=== PATIENT | female | born 1965 | race Caucasian/White ===

== ENCOUNTER 2020-03-15 08:08 | Outpatient (CLI) | payer OTHER, SELFPAY ==
--- NOTE | 2020-03-19 08:00 | ONC FU_ITS ---
Dr. Cook Patient Follow-Up Note Patient: Natividad Vargas Unit #: [id number]: 1965 Dicatated By: Zechariah Cook M.D.Date of Visit:Mar 15, 2020 Onc Med Follow-up/Prog Note Chief Complaint: Breast cancer. History of Present Illness: This is a 54 year-old woman with grade 2 infiltrating ductal carcinoma of the right breast, stage IA (T1c, N0, M0), ER/MT positive and HER-2/beatris positive. Her screening mammograms on 06/20/2018 were BI-RADS 0 with apparent focal architectural distortion in the right lateral superior posterior third breast at the tend 11:00 position. Diagnostic mammogram on 02/18/2018 was BI-RADS 4C, moderately suspicious, showing spiculated mass in the upper outer quadrant measuring 10 mm. Ultrasound showed an irregular shaped mass measuring 10 x 6 mm corresponding to the same area on mammogram. Ultrasound-guided biopsy of the right breast on 03/11/2018 showed grade nuclear grade 1 ductal carcinoma in situ. She was then referred to Dr. Brownlee in [place]. She had further evaluation with breast MRI on 03/29/2018. It showed an irregular mass with associated architectural distortion in the posterior upper outer right breast. It measured 2 x 2 by 1.5 cm. There were no other areas of abnormal enhancement within the right breast. There were no suspicious findings in the left breast. There was no abnormal axillary or internal mammary chain adenopathy noted. On 04/11/2018 she underwent right breast lumpectomy with right axillary sentinel lymph node biopsy. Pathology showed grade 2 invasive ductal carcinoma measuring 18 x 15 x 7 mm. There was DCIS present in the specimen. There was invasive carcinoma within 4 mm of the margin and DCIS within 0.5 mm of the margin. There was no involvement in one sentinel lymph node. The breast prognostic profile showed ER positive at 100% and MT positive at 30%. It was reported to be positive for HER-2/beatris, 3+ by IHC with positive staining in 80% of cells. The Ki-67 was 10%. She then underwent reexcision lumpectomy on 04/23/2018. Pathology showed postlumpectomy changes with no residual in situ or invasive carcinoma identified. She then underwent partial breast radiation in April 2018. I had seen her initially on 05/13/2018. With node negative HER-2/beatris positive disease she was advised to undergo adjuvant chemotherapy with 4 cycles of cyclophosphamide/Taxotere and a year of Herceptin. Her other medical illnesses include hypertension, hypertriglyceridemia, type II diabetes, and GERD. Her surgical history includes a previous hysterectomy without oophorectomy. She has a history of smoking 1 pack of cigarettes daily for 20 years. She quit smoking in 2010. She does not drink alcohol. INTERIM HISTORY: She began cycle 1 of cyclophosphamide/Taxotere and weekly Herceptin on 05/28/2018. She was given 1st cycle prophylaxis with Neulasta. She tolerated it well. She then continued with cycle 2 on 06/20/2018, with cycle 3 on 07/09/2018, and with cycle 4 on 07/31/2018. She then continued single agent Herceptin with cycle 1 administered on 08/20/2018. She has continued treatment on the 3-week dosing schedule. As of 01/14/2019 she received her 8th cycle of single agent Herceptin. She also had started adjuvant hormonal therapy with tamoxifen in October 2018. The tamoxifen was stopped at her follow-up visit on 12/24/2018 due to side effects, including nausea, shortness of breath, and hot flashes. She continued with cycle 9 of single agent Herceptin on 02/04/2019. That time she began further adjuvant hormonal therapy with anastrozole 1 mg daily, as her hormone levels were confirmed to be in menopausal range. She then continued with cycle 10 of Herceptin on 02/25/2019. On 03/03/2019 she had been seen in the emergency room with chest pain, shortness of breath, and nausea. The pain was described as a sharp pain in the substernal area which radiates through to the back between the shoulder blades. Her evaluation, which included CT pulmonary angiogram and the usual cardiac studies, was unrevealing. The symptoms had completely resolved within a few days. A specific cause was not determined, but as a precaution I did opt to have her stop the anastrozole. She continued the Herceptin on schedule, and as of 04/29/2019 she receive cycle 13 at the 3-week dosing schedule, which completed a full year of treatment. She was seen for a follow-up visit on 05/20/2019, and at that point she restarted adjuvant hormonal therapy with anastrozole 1 mg daily. She again experienced significant musculoskeletal pain, particularly in the lower extremities. She stopped taking it as of October 2019. She is seen for a follow-up visit. She has been feeling pretty good generally. She says she has gradually been getting stronger, and she is now back to normal activity. Her appetite has been down a little, but that she attributes to the hot weather. She has not had fever, but she sometimes has hot flashes at night. She has no shortness of breath, cough, or chest pain. Lately she has had some nausea. Her acid reflux is adequately managed with pantoprazole. Bowel function is okay now. She has no diarrhea. She has no complaints. She still has some joint pain, mainly in the ankles and feet. She has no focal neurologic symptoms. Medications: Chlorthalidone 1 Tablet (of 25 mg) Oral daily, EQ Acetaminophen PM 1 Tablet (of 500-25 mg) Oral at bedtime PRN, Fluticasone Propionate Suspension Nasal, K-Tab 3 Tablet (of 10 meq) Tablet, controlled release Oral daily, Lantus 44 Units (of 100 Units/mL) Subcutaneous at bedtime, Metoprolol Tartrate 1 Tablet (of 50 mg) Oral b.i.d., Montelukast Sodium 1 Tablet (of 10 mg) Oral at bedtime, Multivitamin Adult 1 Tablet Oral daily, Pantoprazole Sodium 1 tbsp (of 40 mg) Tablet, enteric coated Oral b.i.d., ProAir HFA 2 puff(s) (of 108 (90 base) mcg/act) Aerosol, solution Inhalation q 4 hours, Sudogest PE 1 Tablet (of 10 mg) Oral b.i.d. PRN, Trulicity 1 (0.75 mg/0.5mL) Subcutaneous q 7 days Allergies: CeleBREX, Codeine Sulfate, Keflex, and vioxx. Review of Systems: Constitutional - She has been feeling really good. Her energy is good. She is back to working full-time and she has normal activity without restrictions. Her appetite is good and weight is up about 5 pounds from last visit. No fevers. She sometimes has hot flashes at night. No sweating. ECOG score is 0, ENMT - No sinus congestion/drainage. No mouth sores. No sore throat or difficulty swallowing, Hematologic/Lymphatic - No abnormal bruising or bleeding, Respiratory - No shortness of breath. No cough. No pleuritic pain or hemoptysis, Cardiovascular - No angina pain. No palpitations, Gastrointestinal - She has been having some nausea the last few days. No vomiting. Her heartburn is adequately managed with pantoprazole. No diarrhea or constipation. No blood in the stool or black stools, Genitourinary (F) - No dysuria or hematuria. No urinary frequency. No urgency or incontinence, Musculoskeletal - She has been having some joint pain. She was having significant pains in her legs while taking the snastrozole, but since stopping the medication it has improved, Integumentary - No skin complications, Neurologic - No headache or dizziness. No numbness or tingling. No other focal neurologic symptoms, Psychiatric - No anxiety or depression. No insomnia. Vital Signs: Performed on Mar 15, 2020 08:15 Height - 63.00 in Weight - 207.6 lbs (HIGH) BSA - 1.96 sq.m BMI - 36.77 (HIGH) Temperature - 97.6 F (LOW) Pulse - 73 /min Respiration - 20 /min BP - 140/72 mm(hg) O2 Sat - 99 % Pain - 0 Physical Examination: Constitutional - She looks good generally, Eyes - Sclerae nonicteric. Conjunctivae clear, ENMT - No lesions noted in the oral cavity, Hematologic/Lymphatic - No cervical or clavicular adenopathy, Respiratory - Lungs are clear with good air movement bilaterally, Cardiovascular - Heart rhythm is regular. There is a I/ systolic murmur. There is no gallop or rub noted, Breasts - There is a firm mass at the lumpectomy site in the superior aspect of the right breast measuring approximately 3 x 4 cm. The left breast shows no mass. There is no axillary adenopathy, Abdomen - Soft. Liver and spleen are not enlarged. There is no abdominal mass or ascites noted and there is no inguinal adenopathy, Extremities - No edema. Pedal pulses are palpable bilaterally, Neurologic - No focal neurologic deficits noted. Lab/Imaging: Test performed on Feb 23, 2020 07:31 Cholesterol, Total 175 mg/dL Glucose 130 mg/dL BUN 5 mg/dL HDL Cholesterol 57 mg/dL Creatinine 0.69 mg/dL LDL Cholesterol 88 mg/dL Cr Clearance (Est) 140.44 mL/min VLDL Cholesterol 30 mg/dL BUN/Creatinine Ratio 135 Absolute Value Triglycerides 150 mg/dL Sodium 135 mmol/L Potassium 3.8 mmol/L Chloride 92 mmol/L CO2 29 mmol/L Calcium 9.9 mg/dL Protein, Total 7.0 g/dL Albumin 4.6 g/dL Globulin 2.4 g/dL Bilirubin, Total 0.4 mg/dL Alkaline Phosphatase 122 IU/L AST (SGOT) 18 IU/L ALT (SGPT) 22 IU/L Hemoglobin A1C 5.4 % Impression: 1. Patient with grade 2 invasive ductal carcinoma of the right breast, stage IA (T1c, N0, M0), ER/MT positive and HER-2/beatris positive. 2. She underwent right breast lumpectomy with right axillary sentinel lymph node biopsy on 04/11/2018 followed by reexcision lumpectomy on 04/29/2018. 3. She underwent partial breast radiation April 2018. Her other medical illnesses include: 4. Hypertension. 5. Hypertriglyceridemia. 6. Type II diabetes. 7. GERD. She was then given adjuvant chemotherapy with 4 cycles of cyclophosphamide/Taxotere together with weekly Herceptin, from 05/28/2018-07/31/2018. She then continued adjuvant therapy with single agent Herceptin at a 3-week dosing schedule, cycle 1 beginning 08/20/2018. Her treatment was complicated by diarrhea, though she had negative colonoscopy and negative stool cultures on 09/06/2018. She also had mild fatigue and mild neuropathy symptoms. Overall, she toolerated the chemotherapy well. She then continued treatment with single agent Herceptin at the 3-week dosing schedule. In October 2018 she began adjuvant hormonal therapy with tamoxifen 20 mg daily. The tamoxifen was stopped at her follow-up visit on 12/24/2018 due to nausea, shortness of breath, andl hot flashes. As of 02/04/2019 she received cycle 9 of single agent Herceptin, and at that time she began further adjuvant hormonal therapy with anastrozole 1 mg daily, as her hormone levels were confirmed to be in menopausal range. She then continued with cycle 10 of Herceptin on 02/25/2019. On 03/03/2019 she was seen in the emergency room with pretty severe pain in the substernal area. The pain radiated through to the back. It was associated with nausea and shortness of breath. A specific cause was not determined. However, I did opt to have her hold the anastrozole. She continued Herceptin on schedule. As of 04/29/2019 she completed cycle 13 at the 3-week dosing interval. She had also received the equivalent a 4 cycles during her chemotherapy, so that she has now completed her full course of 17 cycles. 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 She was mildly anemic, and her serum iron studies from 04/29/2019 did show low transferrin saturation at 18.1% with ferritin also relatively low at 54.0 ng/mL, consistent with iron deficiency. As she previously had difficulty tolerating oral iron supplements, she was given parenteral iron replacement with Injectafer. At that point she also restarted adjuvant hormonal therapy with anastozole 1 mg daily. However, it again caused significant musculoskeletal pain, particularly in the lower extremities, and she stopped taking it as of October 2019. At this point she is feeling much better generally. Her activity tolerance is back to normal, and she is having just mild joint pain. She has had residual seroma at her lumpectomy site in the right breast, and I suspect that it is now beginning to organize. Plan: She will now begin further adjuvant hormonal therapy with exemestane 25 mg daily, but that will be subject to verification of insurance coverage. I will see her again in 6 months, or sooner as needed. Signed By: Zechariah Cook M.D. <<Signature on File>>
== END 2020-03-15 08:09 | disposition home or self-care (01) ==
LOC: ONCMED 08:11
PROVIDERS: PCP Nurse Practitioner; Visit Provider Internal Medicine Medical Oncology
DX: C50.411 Malignant neoplasm of upper-outer quadrant of right female breast (principal); Z17.0 Estrogen receptor positive status [ER+]; Z79.811 Long term (current) use of aromatase inhibitors; Z92.21 Personal history of antineoplastic chemotherapy; N64.89 Other specified disorders of breast
CPT/HCPCS: 99214

== ENCOUNTER 2020-04-29 08:29 | Outpatient (CLI) | payer OTHER, SELFPAY ==
--- NOTE | 2020-05-02 08:51 | ONC FU_ITS ---
Dr. Cook Patient Follow-Up Note Patient: Natividad Vargas Unit #: [id number]: 1965 Dicatated By: Zechariah Cook M.D.Date of Visit:Apr 29, 2020 Onc Med Follow-up/Prog Note Chief Complaint: Breast cancer. History of Present Illness: This is a 54 year-old woman with grade 2 infiltrating ductal carcinoma of the right breast, stage IA (T1c, N0, M0), ER/WV positive and HER-2/beatris positive. Her screening mammograms on 06/20/2018 were BI-RADS 0 with apparent focal architectural distortion in the right lateral superior posterior third breast at the tend 11:00 position. Diagnostic mammogram on 02/18/2018 was BI-RADS 4C, moderately suspicious, showing spiculated mass in the upper outer quadrant measuring 10 mm. Ultrasound showed an irregular shaped mass measuring 10 x 6 mm corresponding to the same area on mammogram. Ultrasound-guided biopsy of the right breast on 03/11/2018 showed grade nuclear grade 1 ductal carcinoma in situ. She was then referred to Dr. Brownlee in [place]. She had further evaluation with breast MRI on 03/29/2018. It showed an irregular mass with associated architectural distortion in the posterior upper outer right breast. It measured 2 x 2 by 1.5 cm. There were no other areas of abnormal enhancement within the right breast. There were no suspicious findings in the left breast. There was no abnormal axillary or internal mammary chain adenopathy noted. On 04/11/2018 she underwent right breast lumpectomy with right axillary sentinel lymph node biopsy. Pathology showed grade 2 invasive ductal carcinoma measuring 18 x 15 x 7 mm. There was DCIS present in the specimen. There was invasive carcinoma within 4 mm of the margin and DCIS within 0.5 mm of the margin. There was no involvement in one sentinel lymph node. The breast prognostic profile showed ER positive at 100% and W[place] positive at 30%. It was reported to be positive for HER-2/beatris, 3+ by IHC with positive staining in 80% of cells. The Ki-67 was 10%. She then underwent reexcision lumpectomy on 04/23/2018. Pathology showed postlumpectomy changes with no residual in situ or invasive carcinoma identified. She then underwent partial breast radiation in April 2018. I had seen her initially on 05/13/2018. With node negative HER-2/beatris positive disease she was advised to undergo adjuvant chemotherapy with 4 cycles of cyclophosphamide/Taxotere and a year of Herceptin. Her other medical illnesses include hypertension, hypertriglyceridemia, type II diabetes, and GERD. Her surgical history includes a previous hysterectomy without oophorectomy. She has a history of smoking 1 pack of cigarettes daily for 20 years. She quit smoking in 2010. She does not drink alcohol. INTERIM HISTORY: She began cycle 1 of cyclophosphamide/Taxotere and weekly Herceptin on 05/28/2018. She was given 1st cycle prophylaxis with Neulasta. She tolerated it well. She then continued with cycle 2 on 06/20/2018, with cycle 3 on 07/09/2018, and with cycle 4 on 07/31/2018. She then continued single agent Herceptin with cycle 1 administered on 08/20/2018. She has continued treatment on the 3-week dosing schedule. As of 01/14/2019 she received her 8th cycle of single agent Herceptin. She also had started adjuvant hormonal therapy with tamoxifen in October 2018. The tamoxifen was stopped at her follow-up visit on 12/24/2018 due to side effects, including nausea, shortness of breath, and hot flashes. She continued with cycle 9 of single agent Herceptin on 02/04/2019. That time she began further adjuvant hormonal therapy with anastrozole 1 mg daily, as her hormone levels were confirmed to be in menopausal range. She then continued with cycle 10 of Herceptin on 02/25/2019. On 03/03/2019 she had been seen in the emergency room with chest pain, shortness of breath, and nausea. The pain was described as a sharp pain in the substernal area which radiates through to the back between the shoulder blades. Her evaluation, which included CT pulmonary angiogram and the usual cardiac studies, was unrevealing. The symptoms had completely resolved within a few days. A specific cause was not determined, but as a precaution I did opt to have her stop the anastrozole. She continued the Herceptin on schedule, and as of 04/29/2019 she receive cycle 13 at the 3-week dosing schedule, which completed a full year of treatment. She was seen for a follow-up visit on 05/20/2019, and at that point she restarted adjuvant hormonal therapy with anastrozole 1 mg daily. She again experienced significant musculoskeletal pain, particularly in the lower extremities. In July she began a trial of therapy with letrozole 2.5 mg daily, also tolerated poorly. She stopped taking it as of October 2019. In March 2020 she began further adjuvant hormonal therapy with exemestane 25 mg daily. She is seen for a follow-up visit. She indicates that she had to stop the exemestane 2 weeks ago because of multiple side effects including fatigue and musculoskeletal pain. She felt like she was going to combust from the inside out. She is feeling better now, though she still has some fatigue. ECOG score is 1. Her appetite is just fair. She has not has fever. She has some hot flashes, but not as bad now. She has a little bit of cough. She does not complain of shortness of breath or chest pain. She was having nausea, but that has resolved. Bowel function is OK now. Her diarrhea has resolved. She has no complaints. She still has mild pain in her [place] bones. She has no other joint or bone pain. She had headache for the first few days after stopping exemestane. She still has some numbness/tingling in her feet. Medications: Chlorthalidone 1 Tablet (of 25 mg) Oral daily, EQ Acetaminophen PM 1 Tablet (of 500-25 mg) Oral at bedtime PRN, Fluticasone Propionate Suspension Nasal, K-Tab 3 Tablet (of 10 meq) Tablet, controlled release Oral daily, Lantus 44 Units (of 100 Units/mL) Subcutaneous at bedtime, Metoprolol Tartrate 1 Tablet (of 50 mg) Oral b.i.d., Montelukast Sodium 1 Tablet (of 10 mg) Oral at bedtime, Multivitamin Adult 1 Tablet Oral daily, Pantoprazole Sodium 1 tbsp (of 40 mg) Tablet, enteric coated Oral b.i.d., ProAir HFA 2 puff(s) (of 108 (90 base) mcg/act) Aerosol, solution Inhalation q 4 hours, Sudogest PE 1 Tablet (of 10 mg) Oral b.i.d. PRN, Trulicity 1 (0.75 mg/0.5mL) Subcutaneous q 7 days Allergies: CeleBREX, Codeine Sulfate, Keflex, and vioxx. Review of Systems: Constitutional - She has been feeling better since stopping the exemestane. Her appetite is good and weight is stable. No fever, night sweats, or hot flashes. ECOG score is 1, ENMT - She has sinus congestion/drainage. No mouth sores. No sore throat or difficulty swallowing, Hematologic/Lymphatic - No abnormal bruising or bleeding, Respiratory - No shortness of breath. She has a slight cough from post-nasal drainage. No pleuritic pain or hemoptysis, Cardiovascular - No angina pain. No palpitations, Gastrointestinal - No nausea or vomiting. Her heartburn is adequately managed with pantoprazole. No diarrhea or constipation. No blood in the stool or black stools, Genitourinary (F) - No dysuria or hematuria. No urinary frequency. No urgency or incontinence, Musculoskeletal - She has been having bone pain in her legs, Integumentary - No skin complications, Neurologic - No headache or dizziness. She has numbness and tingling in her feet. No other focal neurologic symptoms, Psychiatric - No anxiety or depression. No insomnia. Vital Signs: Performed on Apr 29, 2020 08:42 Height - 63.00 in Weight - 209.0 lbs (HIGH) BSA - 1.97 sq.m BMI - 37.02 (HIGH) Temperature - 97.7 F (LOW) Pulse - 66 /min Respiration - 20 /min BP - 126/66 mm(hg) O2 Sat - 99 % Pain - 2 Physical Examination: Constitutional - She looks good generally, Eyes - Sclerae nonicteric. Conjunctivae clear, ENMT - No lesions noted in the oral cavity, Hematologic/Lymphatic - No cervical, clavicular, or axillary adenopathy, Respiratory - Lungs are clear with good air movement bilaterally, Cardiovascular - Heart rhythm is regular. There is no murmur, gallop, or rub noted, Abdomen - Soft. Liver and spleen are not enlarged. There is no abdominal mass or ascites noted and there is no inguinal adenopathy, Extremities - No edema, Neurologic - No focal neurologic deficits noted. Impression: 1. Patient with grade 2 invasive ductal carcinoma of the right breast, stage IA (T1c, N0, M0), ER/[place] positive and HER-2/beatris positive. 2. She underwent right breast lumpectomy with right axillary sentinel lymph node biopsy on 04/11/2018 followed by reexcision lumpectomy on 04/29/2018. 3. She underwent partial breast radiation April 2018. Her other medical illnesses include: 4. Hypertension. 5. Hypertriglyceridemia. 6. Type II diabetes. 7. GERD. She was then given adjuvant chemotherapy with 4 cycles of cyclophosphamide/Taxotere together with weekly Herceptin, from 05/28/2018-07/31/2018. She then continued adjuvant therapy with single agent Herceptin at a 3-week dosing schedule, cycle 1 beginning 08/20/2018. Her treatment was complicated by diarrhea, though she had negative colonoscopy and negative stool cultures on 09/06/2018. She also had mild fatigue and mild neuropathy symptoms. Overall, she toolerated the chemotherapy well. She then continued treatment with single agent Herceptin at the 3-week dosing schedule. In October 2018 she began adjuvant hormonal therapy with tamoxifen 20 mg daily. The tamoxifen was stopped at her follow-up visit on 12/24/2018 due to nausea, shortness of breath, andl hot flashes. As of 02/04/2019 she received cycle 9 of single agent Herceptin, and at that time she began further adjuvant hormonal therapy with anastrozole 1 mg daily, as her hormone levels were confirmed to be in menopausal range. She then continued with cycle 10 of Herceptin on 02/25/2019. On 03/03/2019 she was seen in the emergency room with pretty severe pain in the substernal area. The pain radiated through to the back. It was associated with nausea and shortness of breath. A specific cause was not determined. However, I did opt to have her hold the anastrozole. She continued Herceptin on schedule. As of 04/29/2019 she completed cycle 13 at the 3-week dosing interval. She had also received the equivalent a 4 cycles during her chemotherapy, so that she has now completed her full course of 17 cycles. 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 She was mildly anemic, and her serum iron studies from 04/29/2019 did show low transferrin saturation at 18.1% with ferritin also relatively low at 54.0 ng/mL, consistent with iron deficiency. As she previously had difficulty tolerating oral iron supplements, she was given parenteral iron replacement with Injectafer. At that point she also restarted adjuvant hormonal therapy with anastozole 1 mg daily. However, it again caused significant musculoskeletal pain. In July 2019 she began a trial of therapy with letrozole 2.5 mg daily, but also tolerated poorly. It was stopped as of October 2019. In March 2020 she began further adjuvant hormonal therapy with exemestane 25 mg daily. She stopped it within 2 weeks due to multiple side effects. These are now mostly resolved. Overall, she has had difficulty tolerating any of the approved adjuvant hormonal therapies. Plan: She will try going back on letrozole 2.5 mg daily, which of all the hormonal therapies seemed to cause her the least amount of side effect. I will see her again in 6 months, or sooner as needed. Signed By: Zechariah Cook M.D. <<Signature on File>>
== END 2020-04-29 08:30 | disposition home or self-care (01) ==
LOC: ONCMED 08:31
PROVIDERS: PCP Nurse Practitioner; Visit Provider Internal Medicine Medical Oncology
DX: C50.411 Malignant neoplasm of upper-outer quadrant of right female breast (principal); Z17.0 Estrogen receptor positive status [ER+]; D50.9 Iron deficiency anemia, unspecified; I10 Essential (primary) hypertension; E78.1 Pure hyperglyceridemia; E11.9 Type 2 diabetes mellitus without complications; K21.9 Gastro-esophageal reflux disease without esophagitis; Z79.810 Long term (current) use of selective estrogen receptor modulators (SERMs)
CPT/HCPCS: 99214

== ENCOUNTER 2020-10-05 15:18 | Outpatient (CLI) | payer OTHER, SELFPAY ==
--- NOTE | 2020-10-05 15:37 | XR_ITS ---
WS: [id number] CHEST 2 VIEWS HISTORY: COUGH COMPARISON: 03/03/2019 Lungs: Clear with no abnormality. No pleural effusion or pneumothorax. Cardiac size: Normal. Mediastinum/Aorta: Normal mediastinum. Bones: Normal. XR/XR chest 2V* [id number] IMPRESSION: Normal chest.
== END 2020-10-05 15:19 | disposition home or self-care (01) ==
PROVIDERS: PCP Nurse Practitioner; Visit Provider Nurse Practitioner Family
DX: R05 Cough (principal)
CPT/HCPCS: 71046

== ENCOUNTER 2020-10-28 09:13 | Outpatient (CLI) | payer OTHER, SELFPAY ==
--- NOTE | 2020-10-28 14:35 | ONC FU_ITS ---
Dr. Cook Patient Follow-Up Note Patient: Natividad Vargas Unit #: [id number]: [id number] Dicatated By: Zechariah Cook M.D.Date of Visit:Oct 28, 2020 Onc Med Follow-up/Prog Note Chief Complaint: Breast cancer. History of Present Illness: This is a 55 year-old woman with grade 2 infiltrating ductal carcinoma of the right breast, stage IA (T1c, N0, M0), ER/NC positive and HER-2/beatris positive. Her screening mammograms on 06/20/2018 were BI-RADS 0 with apparent focal architectural distortion in the right lateral superior posterior third breast at the tend 11:00 position. Diagnostic mammogram on 02/18/2018 was BI-RADS 4C, moderately suspicious, showing spiculated mass in the upper outer quadrant measuring 10 mm. Ultrasound showed an irregular shaped mass measuring 10 x 6 mm corresponding to the same area on mammogram. Ultrasound-guided biopsy of the right breast on 03/11/2018 showed grade nuclear grade 1 ductal carcinoma in situ. She was then referred to Dr. Brownlee in [place]. She had further evaluation with breast MRI on 03/29/2018. It showed an irregular mass with associated architectural distortion in the posterior upper outer right breast. It measured 2 x 2 by 1.5 cm. There were no other areas of abnormal enhancement within the right breast. There were no suspicious findings in the left breast. There was no abnormal axillary or internal mammary chain adenopathy noted. On 04/11/2018 she underwent right breast lumpectomy with right axillary sentinel lymph node biopsy. Pathology showed grade 2 invasive ductal carcinoma measuring 18 x 15 x 7 mm. There was DCIS present in the specimen. There was invasive carcinoma within 4 mm of the margin and DCIS within 0.5 mm of the margin. There was no involvement in one sentinel lymph node. The breast prognostic profile showed ER positive at 100% and NC positive at 30%. It was reported to be positive for HER-2/beatris, 3+ by IHC with positive staining in 80% of cells. The Ki-67 was 10%. She then underwent reexcision lumpectomy on 04/23/2018. Pathology showed postlumpectomy changes with no residual in situ or invasive carcinoma identified. She then underwent partial breast radiation in April 2018. I had seen her initially on 05/13/2018. With node negative HER-2/beatris positive disease she was advised to undergo adjuvant chemotherapy with 4 cycles of cyclophosphamide/Taxotere and a year of Herceptin. Her other medical illnesses include hypertension, hypertriglyceridemia, type II diabetes, and GERD. Her surgical history includes a previous hysterectomy without oophorectomy. She has a history of smoking 1 pack of cigarettes daily for 20 years. She quit smoking in 2010. She does not drink alcohol. INTERIM HISTORY: She began cycle 1 of cyclophosphamide/Taxotere and weekly Herceptin on 05/28/2018. She was given 1st cycle prophylaxis with Neulasta. She tolerated it well. She then continued with cycle 2 on 06/20/2018, with cycle 3 on 07/09/2018, and with cycle 4 on 07/31/2018. She then continued single agent Herceptin with cycle 1 administered on 08/20/2018. She has continued treatment on the 3-week dosing schedule. As of 01/14/2019 she received her 8th cycle of single agent Herceptin. She also had started adjuvant hormonal therapy with tamoxifen in October 2018. The tamoxifen was stopped at her follow-up visit on 12/24/2018 due to side effects, including nausea, shortness of breath, and hot flashes. She continued with cycle 9 of single agent Herceptin on 02/04/2019. That time she began further adjuvant hormonal therapy with anastrozole 1 mg daily, as her hormone levels were confirmed to be in menopausal range. She then continued with cycle 10 of Herceptin on 02/25/2019. On 03/03/2019 she had been seen in the emergency room with chest pain, shortness of breath, and nausea. The pain was described as a sharp pain in the substernal area which radiates through to the back between the shoulder blades. Her evaluation, which included CT pulmonary angiogram and the usual cardiac studies, was unrevealing. The symptoms had completely resolved within a few days. A specific cause was not determined, but as a precaution I did opt to have her stop the anastrozole. She continued the Herceptin on schedule, and as of 04/29/2019 she receive cycle 13 at the 3-week dosing schedule, which completed a full year of treatment. She was seen for a follow-up visit on 05/20/2019, and at that point she restarted adjuvant hormonal therapy with anastrozole 1 mg daily. She again experienced significant musculoskeletal pain, particularly in the lower extremities. In July she began a trial of therapy with letrozole 2.5 mg daily, also tolerated poorly. She stopped taking it as of October 2019. In March 2020 she began further adjuvant hormonal therapy with exemestane 25 mg daily. She stopped it within 2 weeks due to multiple side effects, was significantly fatigue and musculoskeletal pain. She then tried going back on the letrozole. She was able to tolerate it for about 6 weeks, but by mid May it had to be put on hold because of side effects. She is seen for a follow-up visit. She had been feeling pretty good generally, but last month she developed a persistent cough. Toward the end of September she also came down with flulike symptoms and she lost her taste and smell. At that point she was tested and found to be positive for COVID-19. She was released from quarantine 2 weeks ago. Her energy is still not good, but it is slowly getting better. She is working. Her ECOG score is 1. Appetite is still not the best, but it is beginning to come back. She had low-grade fever with the COVID-19 infection, but that has resolved. She has had some hot flashes. She complains of having runny nose and she is still coughing. She was short of breath, but that has improved. She does not complain of chest pain. She has had a little bit of nausea. Her acid reflux is adequately managed with pantoprazole. She has had some diarrhea. Bladder function has been okay. She has been having joint pain off-and-on and she also has had headache, but that also is getting better. She does not complain of dizziness. She does have some numbness/tingling in her feet. Medications: Chlorthalidone 1 Tablet (of 25 mg) Oral daily, EQ Acetaminophen PM 1 Tablet (of 500-25 mg) Oral at bedtime PRN, Fluticasone Propionate Suspension Nasal, K-Tab 3 Tablet (of 10 meq) Tablet, controlled release Oral daily, Lantus 44 Units (of 100 Units/mL) Subcutaneous at bedtime, Metoprolol Tartrate 1 Tablet (of 50 mg) Oral b.i.d., Montelukast Sodium 1 Tablet (of 10 mg) Oral at bedtime, Multivitamin Adult 1 Tablet Oral daily, Pantoprazole Sodium 1 tbsp (of 40 mg) Tablet, enteric coated Oral b.i.d., ProAir HFA 2 puff(s) (of 108 (90 base) mcg/act) Aerosol, solution Inhalation q 4 hours, Sudogest PE 1 Tablet (of 10 mg) Oral b.i.d. PRN, Trulicity 1 (0.75 mg/0.5mL) Subcutaneous q 7 days Allergies: CeleBREX, Codeine Sulfate, Keflex, and vioxx. Vital Signs: Performed on Oct 28, 2020 09:29 Height - 63.00 in Weight - 213.4 lbs (HIGH) BSA - 1.99 sq.m BMI - 37.80 (HIGH) Temperature - 95.8 F (LOW) Pulse - 70 /min Respiration - 18 /min BP - 136/79 mm(hg) O2 Sat - 98 % Pain - 3 Fatigue - 5 Physical Examination: Constitutional - She looks good generally, Eyes - Sclerae nonicteric. Conjunctivae clear, ENMT - No lesions noted in the oral cavity, Hematologic/Lymphatic - No cervical, clavicular, or axillary adenopathy, Respiratory - Lungs are clear with good air movement bilaterally, Cardiovascular - Heart rhythm is regular. There is no murmur, gallop, or rub noted, Abdomen - Soft. Liver and spleen are not enlarged. There is no abdominal mass or ascites noted and there is no inguinal adenopathy, Extremities - No edema, Neurologic - No focal neurologic deficits noted. Lab/Imaging: Test performed on Oct 26, 2020 08:02 Glucose 167 mg/dL BUN 9 mg/dL Creatinine 0.69 mg/dL Cr Clearance (Est) 138.83 mL/min Sodium 132 mmol/L Potassium 3.6 mmol/L Chloride 92 mmol/L CO2 26 mmol/L Calcium 9.5 mg/dL Protein, Total 6.7 g/dL Albumin 4.4 g/dL Globulin 2.3 g/dL Bilirubin, Total 0.5 mg/dL Alkaline Phosphatase 125 IU/L AST (SGOT) 25 IU/L ALT (SGPT) 29 IU/L WBC 6.7 10^9/L RBC 4.34 10^12/L HGB 12.8 g/dL HCT 37.8 % MCV 87 fl MCH 29.5 pg MCHC 33.9 g/dL RDW 15.5 % Platelet Count 286 10^9/L Neutrophils (Gran) 4.8 10^9/L Lymphocytes 1.1 10^9/L Monocytes 0.5 10^9/L Eosinophils 0.2 10^9/L Basophils 0.1 10^9/L Manual Lymphocytes 18 % Manual Monocytes 6 % Manual Eosinophils 3 % Manual Basophils 1 % Problem List: 1. Patient with grade 2 invasive ductal carcinoma of the right breast, stage IA (T1c, N0, M0), ER/NC positive and HER-2/beatris positive. 2. Hypertension. 3. Hypertriglyceridemia. 4. Type II diabetes. 5. GERD. Problems Addressed with this Encounter and Plan: Patient with grade 2 invasive ductal carcinoma of the right breast, stage IA (T1c, N0, M0), ER/NC positive and HER-2/beatris positive. She underwent right breast lumpectomy with right axillary sentinel lymph node biopsy on 04/11/2018 followed by reexcision lumpectomy on 04/29/2018. She underwent partial breast radiation April 2018. She was then given adjuvant chemotherapy with 4 cycles of cyclophosphamide/Taxotere together with weekly Herceptin, from 05/28/2018-07/31/2018. She then continued adjuvant therapy with single agent Herceptin at a 3-week dosing schedule, cycle 1 beginning 08/20/2018. Her treatment was complicated by diarrhea, though she had negative colonoscopy and negative stool cultures on 09/06/2018. She also had mild fatigue and mild neuropathy symptoms. Overall, she toolerated the chemotherapy well. She then continued treatment with single agent Herceptin at the 3-week dosing schedule. As of 04/29/2019 she completed cycle 13 at the 3-week dosing interval. She had also received the equivalent a 4 cycles during her chemotherapy, so that as of that point she had completed her full course of 17 cycles. During that time she had also had trials of hormonal therapy with tamoxifen in October 2018, with anastrozole in February 2019, with letrozole in July 2019, and with exemestane in March 2020. She had significant side effects with all of these. She tried the letrozole a second time beginning in April 2020, but she again could not tolerate it and it was stopped by mid May 2020. She has since then been followed on expectantly. She had been feeling pretty good until last month when she was diagnosed with COVID-19 virus infection. She has been showing uneventful recovery from that illness. Overall, she has been doing pretty well clinically. Thus far there has been no evidence of recurrence of the breast cancer. She remains on observation/expectant management. I will see her again in 6 months. Signed By: Zechariah Cook M.D. <<Signature on File>>
== END 2020-10-28 09:14 | disposition home or self-care (01) ==
LOC: ONCMED 09:15
PROVIDERS: PCP Nurse Practitioner; Visit Provider Internal Medicine Medical Oncology
DX: Z08 Encounter for follow-up examination after completed treatment for malignant neoplasm (principal); Z85.3 Personal history of malignant neoplasm of breast; D50.9 Iron deficiency anemia, unspecified; I10 Essential (primary) hypertension; E11.9 Type 2 diabetes mellitus without complications; K21.9 Gastro-esophageal reflux disease without esophagitis; E78.1 Pure hyperglyceridemia; Z79.899 Other long term (current) drug therapy
CPT/HCPCS: 99214

== ENCOUNTER 2021-08-11 09:37 | Outpatient (CLI) | payer OTHER, SELFPAY ==
[2021-08-11 10:10] VITALS: BP 132/71; PULSE 69; RESP 18; TEMP 36.6; O2SAT 98
[2021-08-11 10:21] VITALS: BMI 35.4
[2021-08-11 10:50] VITALS: BP 117/70; PULSE 68; RESP 18; TEMP 36.8; O2SAT 98
[2021-08-11 11:50] VITALS: BP 133/78; PULSE 64; RESP 18; TEMP 36.6; O2SAT 99
== END 2021-08-11 09:38 | disposition home or self-care (01) ==
LOC: OPS 09:38
PROVIDERS: PCP Nurse Practitioner; Visit Provider Nurse Practitioner Family
DX: U07.1 COVID-19 (principal)
CPT/HCPCS: 96365

== ENCOUNTER → 2025-03-31 13:33 | Outpatient (BNVA) | payer OTHER, SELFPAY | PROVIDERS: PCP Internal Medicine; Visit Provider Student in an Organized Health Care Education/Training Program | DX: S59.902A Unspecified injury of left elbow, initial encounter (principal); W19.XXXA Unspecified fall, initial encounter | CPT/HCPCS: 73080; 73110 ==

== ENCOUNTER 2025-04-07 15:22 | Outpatient (RCR) | payer OTHER, SELFPAY | END 2025-04-12 23:59 | disposition home or self-care (01) | LOC: SOT 15:22 | PROVIDERS: Visit Provider Student in an Organized Health Care Education/Training Program | DX: S52.125A Nondisplaced fracture of head of left radius, initial encounter for closed fracture (principal); X58.XXXA Exposure to other specified factors, initial encounter | CPT/HCPCS: 97110; 97165; 97530 ==

== ENCOUNTER → 2025-04-14 09:56 | Outpatient (BNVA) | payer OTHER, SELFPAY | PROVIDERS: PCP Internal Medicine; Visit Provider Student in an Organized Health Care Education/Training Program | DX: S52.122A Displaced fracture of head of left radius, initial encounter for closed fracture (principal); X58.XXXA Exposure to other specified factors, initial encounter | CPT/HCPCS: 73080 ==